=== PATIENT | female | born 1950 | race Caucasian/White ===

== ENCOUNTER 2018-02-09 05:29 | Observation (INO) ==
--- NOTE | 2018-02-09 05:44 | Emergency Department Note ---
Disposition Clinical Impression: Brugada syndrome, Dyspnea Disposition: Admitted As Inpatient Condition: Good Referrals: NONE,PCP [Non-Partnered Physician] - Forms: ED Satisfaction Letter Time of Disposition: 07:02 [facility] - General Chief Complaint: ED Shortness of Breath/Dyspnea Time Seen by Provider: 02/09/18 05:32 Source: patient, EMS Mode of arrival: EMS Limitations: no limitations Nursing Notes Reviewed: Yes Vital Signs Reviewed: Yes - History of Present Illness Patient presents to the ED via EMS for the chief complaint of shortness of breath. reportedly woke up about an hour ago, immediately got out of bed and noticed that she felt very short of breath and winded. States that she felt like her heart is racing. Reports that she developed a centralized chest pressure and heaviness and tightness that has since resolved but she still just does not feel right. She has no significant no history. Takes no medications daily. She has had diverticulitis in the past, partial bowel resection, but states she has not had any issues with that in years. No previous history of coronary artery disease. No history of DVT, PE or malignancy. Patient's pain-free currently. No fever or chills, cough, abdominal pain, nausea, vomiting, diarrhea, diaphoresis, pain or swelling in her legs or rash. No headache or changes in vision. - Related Data Home Medications Medication Instructions Recorded Confirmed Latanoprost [Xalatan] 1 drop BOTH EYES HS 02/09/18 02/09/18 Allergies Allergy/AdvReac Type Severity Reaction Status Date / Time No Known Allergies Allergy Verified 02/09/18 05:33 Review of Systems: As reviewed in the HPI. All other systems reviewed are negative or normal. Past Medical History - Past Medical History Attestation: Yes The following information was validated with the patient. Source: patient Medical history: Reports: no medical history Psychiatric history: Reports: no psych history - Social History Smoking Status: Never smoker Alcohol use: Reports: occasionally Drug use: Reports: none Physical Exam - General Limitations: no limitations General appearance: alert, in no apparent distress - Head Head exam: atraumatic, normocephalic, normal inspection - Eye Eye exam: Present: normal appearance, PERRL, EOMI - ENT ENT exam: normal exam, normal oropharynx, mucous membranes moist - Neck Neck exam: Present: normal inspection, full ROM, trachea midline - Chest Chest inspection: Present: normal inspection, symmetric chest wall rise - Respiratory Respiratory exam: Present: normal lung sounds bilaterally - Cardiovascular Cardiovascular exam: Present: regular rate, normal rhythm, normal heart sounds - Abdominal Exam Abdominal exam: Present: soft, Non-Tender. Absent: tenderness, distention, guarding, rebound, rigidity - Extremities Exam Extremities exam: Present: normal inspection, full ROM. Absent: tenderness, pedal edema - Neurological Exam Neurological exam: Present: alert, oriented X3 - Psychiatric Psychiatric exam: Present: normal affect, normal mood, anxious (Slightly) - Skin Skin exam: Present: warm, dry, intact, normal color Course Course Narrative: Patient presenting ED with shortness breath and chest discomfort that has resolved. We will get labs, EKG, chest x-ray. - Reevaluation(s) Reevaluation #1: signed out pending admission to hospitalist. Signed out to Dr. Miller. Vital Signs Temperature 98.1 F 02/09/18 05:33 Pulse Rate 84 02/09/18 05:33 Respiratory Rate 20 02/09/18 05:33 Blood Pressure 134/72 02/09/18 05:33 O2 Sat by Pulse Oximetry 100 02/09/18 05:33 Temperature 98.1 F 02/09/18 05:33 Pulse Rate 84 02/09/18 05:33 Respiratory Rate 20 02/09/18 05:33 Blood Pressure 134/72 02/09/18 05:33 O2 Sat by Pulse Oximetry 100 02/09/18 05:37 Oxygen Delivery Oxygen Delivery Room Air Shortness of Breath/Dyspnea - Medical Records Medical records reviewed: Yes I reviewed the patient's medical records. - Lab Data Lab results reviewed: Yes I reviewed the patient's lab results. Result diagrams: 02/09/18 05:42 02/09/18 05:42 Lab Results 02/09/18 02/09/18 02/09/18 Range/Units 05:42 05:42 05:42 WBC 5.0 (4.3-11.1) K/mcL RBC 4.46 (3.82-4.97) M/mcL Hgb 13.9 (11.5-15.4) g/dL Hct 40.1 (35.3-44.9) % MCV 89.9 (83.0-100.0) fL MCH 31.2 (28.0-33.3) pg MCHC 34.7 (31.6-35.5) g/dL RDW 11.9 (11.5-14.5) % Plt Count 176 (140-400) K/mcL MPV 10.9 (9.4-12.4) fL Immature Gran % 0.2 (0-4) % Seg Neutrophils % 36.2 % Lymphocytes % 51.8 % Monocytes % 9.4 % Eosinophils % 1.8 % Basophils % 0.6 % Neutrophils # 1.8 (1.6-8.9) K/mcL Lymphocytes # 2.6 (0.6-4.6) K/mcL Monocytes # 0.5 (0.0-1.3) K/mcL Eosinophils # 0.1 (0.0-0.6) K/mcL Basophils # 0.0 (0.0-0.2) K/mcL D-Dimer (0-500) ng/mLFEU Sodium 140 (136-145) mEq/L Potassium 3.6 (3.5-5.1) mEq/L Chloride 107 (98-107) mEq/L Carbon Dioxide 28 (23-29) mEq/L BUN 15 (8-23) mg/dL Creatinine 0.66 (0.60-1.20) mg/dL Est GFR ( Amer) > 60 (> 60) Est GFR (Non-Af Amer) > 60 (> 60) BUN/Creatinine Ratio 23 (6-26) Glucose 105 (70-105) mg/dL Calculated Osmolality 291 (280-300) Calcium 9.1 (8.6-10.3) mg/dL Troponin I < 0.03 (< 0.04) ng/mL B-Natriuretic Peptide 40 (Less than 100) pg/mL Urine Color (Yellow) Urine Clarity (Clear) Urine pH (5.0-8.0) pH Units Ur Specific [place] (1.010-1.025) Urine Protein (Neg-Trace) mg/dL Urine Glucose (UA) (Normal) mg/dL Urine Ketones (Negative) mg/dL Urine Blood (Negative) Urine Nitrite (Negative) Urine Bilirubin (Negative) Urine Urobilinogen (Normal) mg/dL Ur Leukocyte Esterase (Negative) Ur Culture Indicated? (NO) Specimen Rejected 04/16/18 04/16/18 04/16/18 Range/Units 05:42 06:13 06:30 WBC (4.3-11.1) K/mcL RBC (3.82-4.97) M/mcL Hgb (11.5-15.4) g/dL Hct (35.3-44.9) % MCV (83.0-100.0) fL MCH (28.0-33.3) pg MCHC (31.6-35.5) g/dL RDW (11.5-14.5) % Plt Count (140-400) K/mcL MPV (9.4-12.4) fL Immature Gran % (0-4) % Seg Neutrophils % % Lymphocytes % % Monocytes % % Eosinophils % % Basophils % % Neutrophils # (1.6-8.9) K/mcL Lymphocytes # (0.6-4.6) K/mcL Monocytes # (0.0-1.3) K/mcL Eosinophils # (0.0-0.6) K/mcL Basophils # (0.0-0.2) K/mcL D-Dimer < 215 (0-500) ng/mLFEU Sodium (136-145) mEq/L Potassium (3.5-5.1) mEq/L Chloride (98-107) mEq/L Carbon Dioxide (23-29) mEq/L BUN (8-23) mg/dL Creatinine (0.60-1.20) mg/dL Est GFR ( Amer) (> 60) Est GFR (Non-Af Amer) (> 60) BUN/Creatinine Ratio (6-26) Glucose (70-105) mg/dL Calculated Osmolality (280-300) Calcium (8.6-10.3) mg/dL Troponin I (< 0.04) ng/mL B-Natriuretic Peptide (Less than 100) pg/mL Urine Color Yellow (Yellow) Urine Clarity Clear (Clear) Urine pH 7.5 (5.0-8.0) pH Units Ur Specific [place] 1.015 (1.010-1.025) Urine Protein Negative (Neg-Trace) mg/dL Urine Glucose (UA) Normal (Normal) mg/dL Urine Ketones Negative (Negative) mg/dL Urine Blood Negative (Negative) Urine Nitrite Negative (Negative) Urine Bilirubin Negative (Negative) Urine Urobilinogen Normal (Normal) mg/dL Ur Leukocyte Esterase Negative (Negative) Ur Culture Indicated? NO (NO) Specimen Rejected Volume - Radiology Data Radiology results reviewed: Yes I reviewed the patient's radiology results. - EKG Data EKG attestation: Yes I reviewed and interpreted this EKG. EKG results narrative: Sinus rhythm, rate 79,. And 159, QRS 90, QTC 386, normal axis, borderline type II Brugada pattern with several back ST segment elevation in lead V2, mostly and is slightly less prominent in V1. Patient is pain-free at this time
[2018-02-09 05:55] LABS: Basophils % 0.6 %; Eosinophils # 0.1 K/mcL (0.0-0.6); Eosinophils % 1.8 %; Hematocrit 40.1 % (35.3-44.9); Hemoglobin 13.9 g/dL (11.5-15.4); Immature Granulocytes % 0.2 % (0-4); Lymphocytes # 2.6 K/mcL (0.6-4.6); Lymphocytes % 51.8 %; Mean Corpuscular HGB Conc 34.7 g/dL (31.6-35.5); Mean Corpuscular Hemoglobin 31.2 pg (28.0-33.3); Mean Corpuscular Volume 89.9 fL (83.0-100.0); Mean Platelet Volume 10.9 fL (9.4-12.4); Monocytes # 0.5 K/mcL (0.0-1.3); Monocytes % 9.4 %; Neutrophils # 1.8 K/mcL (1.6-8.9); Platelet Count 176 K/mcL (140-400); Red Blood Count 4.46 M/mcL (3.82-4.97); Red Cell Distribution Width 11.9 % (11.5-14.5); Segmented Neutrophils % 36.2 %
[2018-02-09 06:16] LABS: BUN/Creatinine Ratio 23 (6-26); Blood Urea Nitrogen 15 mg/dL (8-23); Calcium 9.1 mg/dL (8.6-10.3); Carbon Dioxide 28 mEq/L (23-29); Chloride 107 mEq/L (98-107); Glucose 105 mg/dL (70-105); Osmolality,Calculated 291 (280-300); Potassium 3.6 mEq/L (3.5-5.1); Sodium 140 mEq/L (136-145); Troponin I < 0.03 ng/mL (< 0.04); eGFR For African Americans > 60 (> 60); eGFR For Non-African Americans > 60 (> 60)
[2018-02-09 06:37] LABS: Bilirubin,Urine Negative (Negative); Blood,Urine Negative (Negative); Clarity,Urine Clear (Clear); Color,Urine Yellow (Yellow); Glucose,Urine (UA) Normal (Normal); Ketones,Urine Negative (Negative); Leukocyte Esterase,Urine Negative (Negative); Nitrite,Urine Negative (Negative); PH,Urine 7.5 pH Units (5.0-8.0); Protein,Urine Negative (Neg-Trace); Specific Gravity,Urine 1.015 (1.010-1.025); Urobilinogen,Urine Normal (Normal)
--- NOTE | 2018-02-09 06:50 | Emergency Department Note ---
Disposition Clinical Impression: Brugada syndrome, Dyspnea Disposition: Admitted As Inpatient Condition: Good Referrals: NONE,PCP [Non-Partnered Physician] - Forms: ED Satisfaction Letter General Adult HPI - General Chief complaint: ED Shortness of Breath/Dyspnea Time Seen by Provider: 02/09/18 05:32 Source: patient, EMS Mode of arrival: EMS Limitations: no limitations Nursing Notes Reviewed: Yes Vital Signs Reviewed: Yes - History of Present Illness Pain Scale: 0 - Related Data Home Medications Medication Instructions Recorded Confirmed Latanoprost [Xalatan] 1 drop BOTH EYES HS 02/09/18 02/09/18 Allergies Allergy/AdvReac Type Severity Reaction Status Date / Time No Known Allergies Allergy Verified 02/09/18 05:33 Past Medical History - Past Medical History Medical history: Reports: no medical history Psychiatric history: Reports: no psych history - Social History Smoking Status: Never smoker Alcohol use: Reports: occasionally Drug use: Reports: none Physical Exam - General Limitations: no limitations General appearance: alert, in no apparent distress Course Vital Signs Temperature 98.1 F 02/09/18 05:33 Pulse Rate 84 02/09/18 05:33 Respiratory Rate 20 02/09/18 05:33 Blood Pressure 134/72 02/09/18 05:33 O2 Sat by Pulse Oximetry 100 02/09/18 05:33 Temperature 98.1 F 02/09/18 05:33 Pulse Rate 67 02/09/18 07:00 Respiratory Rate 20 02/09/18 05:33 Blood Pressure 138/97 02/09/18 07:00 O2 Sat by Pulse Oximetry 100 02/09/18 07:00 Oxygen Delivery Oxygen Delivery Room Air Medical Decision Making - Lab Data Result diagrams: 02/09/18 05:42 02/09/18 05:42 Lab Results 02/09/18 02/09/18 02/09/18 Range/Units 05:42 05:42 05:42 WBC 5.0 (4.3-11.1) K/mcL RBC 4.46 (3.82-4.97) M/mcL Hgb 13.9 (11.5-15.4) g/dL Hct 40.1 (35.3-44.9) % MCV 89.9 (83.0-100.0) fL MCH 31.2 (28.0-33.3) pg MCHC 34.7 (31.6-35.5) g/dL RDW 11.9 (11.5-14.5) % Plt Count 176 (140-400) K/mcL MPV 10.9 (9.4-12.4) fL Immature Gran % 0.2 (0-4) % Seg Neutrophils % 36.2 % Lymphocytes % 51.8 % Monocytes % 9.4 % Eosinophils % 1.8 % Basophils % 0.6 % Neutrophils # 1.8 (1.6-8.9) K/mcL Lymphocytes # 2.6 (0.6-4.6) K/mcL Monocytes # 0.5 (0.0-1.3) K/mcL Eosinophils # 0.1 (0.0-0.6) K/mcL Basophils # 0.0 (0.0-0.2) K/mcL D-Dimer (0-500) ng/mLFEU Sodium 140 (136-145) mEq/L Potassium 3.6 (3.5-5.1) mEq/L Chloride 107 (98-107) mEq/L Carbon Dioxide 28 (23-29) mEq/L BUN 15 (8-23) mg/dL Creatinine 0.66 (0.60-1.20) mg/dL Est GFR ( Amer) > 60 (> 60) Est GFR (Non-Af Amer) > 60 (> 60) BUN/Creatinine Ratio 23 (6-26) Glucose 105 (70-105) mg/dL Calculated Osmolality 291 (280-300) Calcium 9.1 (8.6-10.3) mg/dL Troponin I < 0.03 (< 0.04) ng/mL B-Natriuretic Peptide 40 (Less than 100) pg/mL Urine Color (Yellow) Urine Clarity (Clear) Urine pH (5.0-8.0) pH Units Ur Specific [place] (1.010-1.025) Urine Protein (Neg-Trace) mg/dL Urine Glucose (UA) (Normal) mg/dL Urine Ketones (Negative) mg/dL Urine Blood (Negative) Urine Nitrite (Negative) Urine Bilirubin (Negative) Urine Urobilinogen (Normal) mg/dL Ur Leukocyte Esterase (Negative) Ur Culture Indicated? (NO) Specimen Rejected 02/09/18 02/09/18 02/09/18 Range/Units 05:42 06:13 06:30 WBC (4.3-11.1) K/mcL RBC (3.82-4.97) M/mcL Hgb (11.5-15.4) g/dL Hct (35.3-44.9) % MCV (83.0-100.0) fL MCH (28.0-33.3) pg MCHC (31.6-35.5) g/dL RDW (11.5-14.5) % Plt Count (140-400) K/mcL MPV (9.4-12.4) fL Immature Gran % (0-4) % Seg Neutrophils % % Lymphocytes % % Monocytes % % Eosinophils % % Basophils % % Neutrophils # (1.6-8.9) K/mcL Lymphocytes # (0.6-4.6) K/mcL Monocytes # (0.0-1.3) K/mcL Eosinophils # (0.0-0.6) K/mcL Basophils # (0.0-0.2) K/mcL D-Dimer < 215 (0-500) ng/mLFEU Sodium (136-145) mEq/L Potassium (3.5-5.1) mEq/L Chloride (98-107) mEq/L Carbon Dioxide (23-29) mEq/L BUN (8-23) mg/dL Creatinine (0.60-1.20) mg/dL Est GFR ( Amer) (> 60) Est GFR (Non-Af Amer) (> 60) BUN/Creatinine Ratio (6-26) Glucose (70-105) mg/dL Calculated Osmolality (280-300) Calcium (8.6-10.3) mg/dL Troponin I (< 0.04) ng/mL B-Natriuretic Peptide (Less than 100) pg/mL Urine Color Yellow (Yellow) Urine Clarity Clear (Clear) Urine pH 7.5 (5.0-8.0) pH Units Ur Specific [place] 1.015 (1.010-1.025) Urine Protein Negative (Neg-Trace) mg/dL Urine Glucose (UA) Normal (Normal) mg/dL Urine Ketones Negative (Negative) mg/dL Urine Blood Negative (Negative) Urine Nitrite Negative (Negative) Urine Bilirubin Negative (Negative) Urine Urobilinogen Normal (Normal) mg/dL Ur Leukocyte Esterase Negative (Negative) Ur Culture Indicated? NO (NO) Specimen Rejected Volume Attestation Statement - Attestation Attestation: I, Ramesh Krishna MD, personally evaluated this patient and discussed their management with the resident physician. I reviewed the resident's note and agree with the documented findings, medical decision making, and plan of care. 67-year-old female presents to the emergency department with a complaint of awakening from sleep and then suddenly developing shortness of breath with tightness and heaviness in her chest. No prior history of similar episodes or any cardiac problems. She complained that her throat felt dry and hard to swallow. She did not notice any palpitations. No history of palpitations. She has not been ill recently otherwise. No cough or fever. No dizziness or syncope. On examination patient is a well-developed well-nourished appearing elderly female in no acute distress. She is alert and oriented 3. There is no cyanosis or diaphoresis. Chest is nontender to palpation. Breath sounds are clear and equal bilaterally. Heart regular rate and rhythm. Abdomen soft and nontender with normal bowel sounds. EKG shows sinus rhythm with ventricular rate is 79. Type II Brugada pattern. Labs reviewed and unremarkable. Troponin normal. D-dimer is pending. At shift change patient is signed out to the oncoming dayshift team, Dr. Lopez and Dr. Willem Miller.
--- NOTE | 2018-02-09 07:14 | Emergency Department Note ---
Disposition Clinical Impression: Brugada syndrome, Dyspnea Disposition: Admitted As Inpatient Condition: Good Referrals: NONE,PCP [Non-Partnered Physician] - Forms: ED Satisfaction Letter Time of Disposition: 07:18 General Adult HPI - General Chief complaint: ED Shortness of Breath/Dyspnea Time Seen by Provider: 02/09/18 05:32 Source: patient, EMS Mode of arrival: EMS Limitations: no limitations - History of Present Illness Pain Scale: 0 - Related Data Home Medications Medication Instructions Recorded Confirmed Latanoprost [Xalatan] 1 drop BOTH EYES HS 02/09/18 02/09/18 Allergies Allergy/AdvReac Type Severity Reaction Status Date / Time No Known Allergies Allergy Verified 02/09/18 05:33 Past Medical History - Past Medical History Medical history: Reports: no medical history Psychiatric history: Reports: no psych history - Social History Smoking Status: Never smoker Alcohol use: Reports: occasionally Drug use: Reports: none Physical Exam - General Limitations: no limitations General appearance: alert, in no apparent distress Course Course Narrative: Patient signed out to the nighttime physicians Dr. Erendira Downey. Patient presented with acute shortness of breath at home with some chest tightness. D-dimer troponin and BNP are all unremarkable. EKG does not show acute signs of ST segment elevation does have a type II Brugada syndrome. Because of the findings as well as a concern for acute coronary syndrome the patient will be admitted to the hospital for definitive management. Conversation was had with the on-call hospitalist Dr. Perkins. We reviewed the presentation case he had no other recommendations at this time. Patient will not be started on heparin drip will be given an aspirin here in the emergency room. She has been asymptomatic and having no complaints of the time of admission to the hospital Vital Signs Temperature 98.1 F 02/09/18 05:33 Pulse Rate 84 02/09/18 05:33 Respiratory Rate 20 02/09/18 05:33 Blood Pressure 134/72 02/09/18 05:33 O2 Sat by Pulse Oximetry 100 02/09/18 05:33 Temperature 98.1 F 02/09/18 05:33 Pulse Rate 67 02/09/18 07:00 Respiratory Rate 20 02/09/18 05:33 Blood Pressure 138/97 02/09/18 07:00 O2 Sat by Pulse Oximetry 100 02/09/18 07:00 Oxygen Delivery Oxygen Delivery Room Air Medical Decision Making - Lab Data Result diagrams: 02/09/18 05:42 02/09/18 05:42 Lab Results 02/09/18 02/09/18 02/09/18 Range/Units 05:42 05:42 05:42 WBC 5.0 (4.3-11.1) K/mcL RBC 4.46 (3.82-4.97) M/mcL Hgb 13.9 (11.5-15.4) g/dL Hct 40.1 (35.3-44.9) % MCV 89.9 (83.0-100.0) fL MCH 31.2 (28.0-33.3) pg MCHC 34.7 (31.6-35.5) g/dL RDW 11.9 (11.5-14.5) % Plt Count 176 (140-400) K/mcL MPV 10.9 (9.4-12.4) fL Immature Gran % 0.2 (0-4) % Seg Neutrophils % 36.2 % Lymphocytes % 51.8 % Monocytes % 9.4 % Eosinophils % 1.8 % Basophils % 0.6 % Neutrophils # 1.8 (1.6-8.9) K/mcL Lymphocytes # 2.6 (0.6-4.6) K/mcL Monocytes # 0.5 (0.0-1.3) K/mcL Eosinophils # 0.1 (0.0-0.6) K/mcL Basophils # 0.0 (0.0-0.2) K/mcL D-Dimer (0-500) ng/mLFEU Sodium 140 (136-145) mEq/L Potassium 3.6 (3.5-5.1) mEq/L Chloride 107 (98-107) mEq/L Carbon Dioxide 28 (23-29) mEq/L BUN 15 (8-23) mg/dL Creatinine 0.66 (0.60-1.20) mg/dL Est GFR ( Amer) > 60 (> 60) Est GFR (Non-Af Amer) > 60 (> 60) BUN/Creatinine Ratio 23 (6-26) Glucose 105 (70-105) mg/dL Calculated Osmolality 291 (280-300) Calcium 9.1 (8.6-10.3) mg/dL Troponin I < 0.03 (< 0.04) ng/mL B-Natriuretic Peptide 40 (Less than 100) pg/mL Urine Color (Yellow) Urine Clarity (Clear) Urine pH (5.0-8.0) pH Units Ur Specific [place] (1.010-1.025) Urine Protein (Neg-Trace) mg/dL Urine Glucose (UA) (Normal) mg/dL Urine Ketones (Negative) mg/dL Urine Blood (Negative) Urine Nitrite (Negative) Urine Bilirubin (Negative) Urine Urobilinogen (Normal) mg/dL Ur Leukocyte Esterase (Negative) Ur Culture Indicated? (NO) Specimen Rejected 02/09/18 02/09/18 02/09/18 Range/Units 05:42 06:13 06:30 WBC (4.3-11.1) K/mcL RBC (3.82-4.97) M/mcL Hgb (11.5-15.4) g/dL Hct (35.3-44.9) % MCV (83.0-100.0) fL MCH (28.0-33.3) pg MCHC (31.6-35.5) g/dL RDW (11.5-14.5) % Plt Count (140-400) K/mcL MPV (9.4-12.4) fL Immature Gran % (0-4) % Seg Neutrophils % % Lymphocytes % % Monocytes % % Eosinophils % % Basophils % % Neutrophils # (1.6-8.9) K/mcL Lymphocytes # (0.6-4.6) K/mcL Monocytes # (0.0-1.3) K/mcL Eosinophils # (0.0-0.6) K/mcL Basophils # (0.0-0.2) K/mcL D-Dimer < 215 (0-500) ng/mLFEU Sodium (136-145) mEq/L Potassium (3.5-5.1) mEq/L Chloride (98-107) mEq/L Carbon Dioxide (23-29) mEq/L BUN (8-23) mg/dL Creatinine (0.60-1.20) mg/dL Est GFR ( Amer) (> 60) Est GFR (Non-Af Amer) (> 60) BUN/Creatinine Ratio (6-26) Glucose (70-105) mg/dL Calculated Osmolality (280-300) Calcium (8.6-10.3) mg/dL Troponin I (< 0.04) ng/mL B-Natriuretic Peptide (Less than 100) pg/mL Urine Color Yellow (Yellow) Urine Clarity Clear (Clear) Urine pH 7.5 (5.0-8.0) pH Units Ur Specific [place] 1.015 (1.010-1.025) Urine Protein Negative (Neg-Trace) mg/dL Urine Glucose (UA) Normal (Normal) mg/dL Urine Ketones Negative (Negative) mg/dL Urine Blood Negative (Negative) Urine Nitrite Negative (Negative) Urine Bilirubin Negative (Negative) Urine Urobilinogen Normal (Normal) mg/dL Ur Leukocyte Esterase Negative (Negative) Ur Culture Indicated? NO (NO) Specimen Rejected Volume
[2018-02-09] MEDS ORDERED: Aspirin 81 MG TAB.CHEW PO STA (07:23)
[2018-02-09] MEDS ORDERED: Naloxone 0.4 MG/ML INJ IVP PRN (08:16)
--- NOTE | 2018-02-09 10:03 | Internal Med History&Physical ---
Date of Encounter: 02/09/18 Time of Encounter: 09:59 Internal Medicine - H&P: HPI Chief complaint: chest pressure History of present illness: Ms. Covarrubias is a 67 year old female history of glaucoma who presents with complaint of chest pressure shortness of breath. Patient notes that her chest pressure shortness of breath started early this a.m. Patient was she has never has symptoms of this in the past. Patient's her chest pressure was located in the middle of the chest without any particular radiation. Patient will symptoms lasted for approximately several minutes. Symptoms resolved in the ambulance. At this time patient denies fever, chills or rigors. At this time patient notes her symptoms have completely resolved. She currently denies headache, visual disturbance, neck pain or focal weakness. Patient voices no other concerns. Patient to be admitted for further evaluation. Past Med Surg Social Fam HX - Past Medical History Medical history: no medical history Psychiatric history: no psych history - Past Surgical History Surgical History: other (Cholecystectomy) - Social History Smoking Status: Never smoker Alcohol use: occasionally Drug use: none - Family History Mother Adopted: No Living Status: Still Living Hx Family Cardiac Disorders: No Hx Family Respiratory Disorders: No Hx Family Cancer: No Hx Family GI Disorders: No Hx Family Genitourinary Disorders: No Hx Family Endocrine Disorder: No Hx Family Musculoskeletal Disorders: No Hx Family Neuromuscular Disorders: No Hx Family Neurologic Disorders: No Hx Family HEENT Disorders: No Hx Family Autoimmune Disorders: No Hx Family Reproductive Disorders: No Hx Family Psychosocial Disorders: No Hx Family Medical Disorders: No Father Living Status: Unknown Hx Family Cardiac Disorders: No Hx Family Respiratory Disorders: No Hx Family Cancer: No Hx Family GI Disorders: No Hx Family Genitourinary Disorders: No Hx Family Endocrine Disorder: No Hx Family Musculoskeletal Disorders: No Hx Family Neuromuscular Disorders: No Hx Family Neurologic Disorders: No Hx Family HEENT Disorders: No Hx Family Autoimmune Disorders: No Hx Family Reproductive Disorders: No Hx Family Psychosocial Disorders: No Hx Family Medical Disorders: No Internal Medicine - H&P: Meds Latanoprost [Xalatan] 1 drop BOTH EYES HS 02/09/18 [History] 3 Allergy/AdvReac Type Severity Reaction Status Date / Time No Known Allergies Allergy Verified 02/09/18 05:33 All Systems PM: A 10-system review of systems was performed and is negative for pertinent findings except as documented above in the HPI. Review of systems: All systems reviewed and negative except for what is mentioned in history of present illness - Constitutional Vitals: Temp Pulse Resp BP Pulse Ox 98.1 F 77 17 142/83 99 02/09/18 05:33 02/09/18 08:54 02/09/18 08:54 02/09/18 08:54 02/09/18 08:54 Vital signs as above Gen.: Alternative shows calm cooperative, able to speak in full sentences HEENT: Atraumatic, normocephalic, extraoculars are intact, PERRL, there is no scleral icterus Neck: No JVD, no pain to palpation, full range of motion Heart: Normal S1-S2 regular rate and rhythm Lungs: Clear to auscultation Abdomen: Soft, nontender, nondistended, positive bowel sounds, no guarding, no rigidity Musculoskeletal: Patient moves unfortunately freely, no pain to palpation of large joints, tenderness, no pedal edema Neuro: Nonfocal, no lateralization, cranial nerves are intact Skin: Intact known rash Psychiatry: Normal affect Internal Med - H&P Results - Labs CBC & Chem 7: 02/09/18 05:42 02/09/18 05:42 - Assessment and plan (1) Arrhythmia Current Visit: Yes Status: Acute Assessment and plan: Brugada-like pattern on EKG. At this time patient denies chest pain or shortness of breath Patient denies any history of cardiac disease Continues personnel monitor, check cardiac enzymes, echocardiogram I discussed case with cardiology today. EKG's reviewed as well. At this time no acute intervention required per cardiology. EP will be consulted by cardiology. I will evaluate patient in consultation, no acute intervention at this time ECHO ordered. Qualifiers: Qualified Code(s): I49.9 - Cardiac arrhythmia, unspecified (2) Glaucoma Current Visit: Yes Status: Acute Assessment and plan: continue home medications Qualifiers: Qualified Code(s): H40.9 - Unspecified glaucoma (3) DVT prophylaxis Current Visit: Yes Status: Acute Assessment and plan: SCD's for VTE prophylaxis Ambulate with assistance - Time Spent With Patient Total time spent is greater than 50% in coordination of care (as documented) at patient's floor/unit and/or counseling patient:
[2018-02-09] MEDS ORDERED: Latanoprost 2.5 ML BOTTLE BOTH EYES SCH (21:00)
[2018-02-10 05:24] LABS: Basophils % 0.4 %; Eosinophils # 0.1 K/mcL (0.0-0.6); Eosinophils % 1.8 %; Hematocrit 40.8 % (35.3-44.9); Hemoglobin 13.9 g/dL (11.5-15.4); Immature Granulocytes % 0.2 % (0-4); Lymphocytes # 2.3 K/mcL (0.6-4.6); Mean Corpuscular HGB Conc 34.1 g/dL (31.6-35.5); Mean Corpuscular Hemoglobin 30.8 pg (28.0-33.3); Mean Corpuscular Volume 90.3 fL (83.0-100.0); Mean Platelet Volume 10.9 fL (9.4-12.4); Monocytes # 0.4 K/mcL (0.0-1.3); Monocytes % 8.7 %; Neutrophils # 2.1 K/mcL (1.6-8.9); Platelet Count 177 K/mcL (140-400); Red Blood Count 4.52 M/mcL (3.82-4.97); Red Cell Distribution Width 11.9 % (11.5-14.5); Segmented Neutrophils % 41.9 %
[2018-02-10 05:33] LABS: Prothrombin Time 10.8 Seconds (9.4-12.1)
[2018-02-10 05:41] LABS: Alanine Aminotransferase 15 Units/L (7-52); Albumin/Globulin Ratio 1.8 (1.1-2.2); Alkaline Phosphatase 57 Units/L (34-104); Aspartate Amino Transferase 15 Units/L (13-39); BUN/Creatinine Ratio 24 (6-26); Bilirubin,Total 0.5 mg/dL (0.3-1.0); Blood Urea Nitrogen 16 mg/dL (8-23); Calcium 8.9 mg/dL (8.6-10.3); Carbon Dioxide 27 mEq/L (23-29); Chloride 107 mEq/L (98-107); Chol/HDL Ratio 2.5 (0-4.9); Cholesterol 206 mg/dL (< 200); Globulin 2.2 g/dL (2.4-3.5); Glucose 107 mg/dL (70-105); HDL Cholesterol 84 mg/dL (40-59); LDL Cholesterol,Calculated 110 mg/dL (0-99); Osmolality,Calculated 288 (280-300); Potassium 3.7 mEq/L (3.5-5.1); Sodium 138 mEq/L (136-145); Total Protein 6.2 g/dL (6.4-8.9); Triglycerides 58 mg/dL (< 150); eGFR For African Americans > 60 (> 60); eGFR For Non-African Americans > 60 (> 60)
--- NOTE | 2018-02-10 09:36 | Electrocardiograph Report ---
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
--- NOTE | 2018-02-10 10:35 | Electrophysiology Consult Note ---
<Tracey Orlando - Last Filed: 02/10/18 10:30> Date of Encounter: 02/10/18 Time of Encounter: 09:30 Assessment and Plan (1) Abnormal ECG Current Visit: Yes Status: Acute Per EP: -ECG with type II brugada pattern. -Denies palpitations or fluttering. -Denies syncope or near syncope. -Denies family history of sudden cardiac . -TTE pending. -Will discuss and review with Dr.John Apodaca. (2) Chest discomfort Current Visit: Yes Status: Acute Per cardiology: -Reports chest discomfort yesterday while at rest. -Denies current. -Troponins negative x4. -No acute ischemic ECG changes. -TTE pending. -Further recommendations pending TTE. Discussion w patient/family: The assessment and plan as outlined above was discussed with the patient and/or family members who expressed understanding and agreement. All questions were answered. Thank you for involving us in the care of your patient. Please call with any questions. Discussed and reviewed with Dr.John Apodaca. History of Present Illness Consult date: 02/10/18 Requesting physician: Scott Walker Consult reason: brugada Chief complaint: shortness of breath, chest heaviness History of present illness: Ms. Covarrubias is a 67 year old female with a relevant past medical history of diverticulitis, who presented to [facility] with complaints of shortness of breath and chest heaviness. Patient states she woke up yesterday about 0500 and just "wasn't feeling well." Patient states she went and laid back down and the had shortness of breath and chest heaviness. Patient denies aggravating or alleviating symptoms. Patient denies exertional symptoms. Patient reports pain resolved spontaneoulsy after a few hours. Patient denies any current symptoms. Past Med Surg Social Fam HX - Past Medical History Attestation: Yes The following information was validated with the patient. Source: patient, old records reviewed Medical history: no medical history Psychiatric history: no psych history - Past Surgical History Surgical History: other (Cholecystectomy) - Social History Smoking Status: Never smoker Alcohol use: occasionally Drug use: none - Family History Mother Adopted: No Living Status: Still Living Hx Family Cardiac Disorders: No Hx Family Respiratory Disorders: No Hx Family Cancer: No Hx Family GI Disorders: No Hx Family Genitourinary Disorders: No Hx Family Endocrine Disorder: No Hx Family Musculoskeletal Disorders: No Hx Family Neuromuscular Disorders: No Hx Family Neurologic Disorders: No Hx Family HEENT Disorders: No Hx Family Autoimmune Disorders: No Hx Family Reproductive Disorders: No Hx Family Psychosocial Disorders: No Hx Family Medical Disorders: No Father Living Status: Unknown Hx Family Cardiac Disorders: No Hx Family Respiratory Disorders: No Hx Family Cancer: No Hx Family GI Disorders: No Hx Family Genitourinary Disorders: No Hx Family Endocrine Disorder: No Hx Family Musculoskeletal Disorders: No Hx Family Neuromuscular Disorders: No Hx Family Neurologic Disorders: No Hx Family HEENT Disorders: No Hx Family Autoimmune Disorders: No Hx Family Reproductive Disorders: No Hx Family Psychosocial Disorders: No Hx Family Medical Disorders: No Medications and Allergies Latanoprost [Xalatan] 1 drop BOTH EYES HS 02/09/18 [History] 3 Allergy/AdvReac Type Severity Reaction Status Date / Time No Known Allergies Allergy Verified 02/09/18 05:33 All Systems Review: The remainder of the systems were reviewed and are negative - Cardiovascular Cardiovascular: as per HPI, chest pain at rest, dyspnea at rest Physical Examination Vital Signs, Last 4 Hours Temp Pulse Resp BP Pulse Ox 02/10/18 07:27 98.3 F 59 16 125/81 98 General: Conversant, No Apparent Distress HEENT: Atraumatic, Normocephaly, Mucus Membranes Moist Neck: No JVD, Normal carotid pulses Cardiac: Reg Rate and Rhythm, Normal S1 and S2, No Murmur Lungs: Normal Breath Sounds, No Wheeze, Rales, Rhonchi Neuro: Alert and responsive, No focal deficits noted Abdomen: Soft, Non-Tender Skin: No rashes noted on visualized skin Musculoskeletal: No Chest Wall Tenderness Extremities: No Clubbing, No Cyanosis, No Edema, Normal Pulses Results 02/10/18 04:59 02/10/18 04:59 Lab Results Active Medications Latanoprost (Xalatan) 1 drop BOTH EYES HS GI PRN Reason: Protocol Stop: 08/11/18 21:01 Last Admin: 02/09/18 19:29 Dose: 1 drop Naloxone HCl (Narcan) 0.4 mg IVP Q2MIN PRN PRN Reason: SEE COMMENTS Stop: 08/11/18 08:17 Laboratory Tests 02/09/18 02/09/18 02/09/18 05:42 12:21 17:33 Hgb Sodium Potassium Creatinine Magnesium Troponin I < 0.03 < 0.03 < 0.03 02/09/18 02/10/18 02/10/18 23:58 04:59 04:59 Hgb 13.9 Sodium 138 Potassium 3.7 Creatinine 0.68 Magnesium 2.0 Troponin I < 0.03 - Imaging and Cardiology Chest Xray: report reviewed Echo: pending - EKG Interpretation EKG results cardiology: personally reviewed (ECG with SR, type II brugada pattern.), other (Telemetry reviewed with average HR previous 12 hours noted to be 71, SR. PACs noted.) Consult Discharge Plan - Plan Referrals: Bowen Forbes, [Primary Care Provider] - (patient will call for an appt. per Dr. Forbes office) <Landon Apodaca - Last Filed: 02/10/18 15:25> Date of Encounter: 02/10/18 - Attending Attestation I have personally performed a face to face evaluation on this patient. I have reviewed and agree with the care plan. History and Exam by me shows: Type II brugada pattern in a 67 yo. Doubt this is clinically significant but structural heart disease work up could be done as outpt. Assessment and Plan Discussion w patient/family: The assessment and plan as outlined above was discussed with the patient and/or family members who expressed understanding and agreement. All questions were answered. Thank you for involving us in the care of your patient. Please call with any questions. History of Present Illness History of present illness: Ms. Covarrubias is a 67 year old female All Systems Review: The remainder of the systems were reviewed and are negative Physical Examination Vital Signs, Last 4 Hours Temp Pulse Resp BP Pulse Ox 02/10/18 11:58 98.2 F 63 16 117/77 97 Results 02/10/18 04:59 02/10/18 04:59 Lab Results 02/09/18 02/09/18 02/10/18 17:33 23:58 04:59 WBC 5.0 Hgb 13.9 Hct 40.8 Plt Count 177 INR Sodium Potassium Chloride Carbon Dioxide BUN Creatinine Glucose Calcium Magnesium Total Bilirubin AST ALT Alkaline Phosphatase Troponin I < 0.03 < 0.03 02/10/18 02/10/18 04:59 04:59 WBC Hgb Hct Plt Count INR 1.0 Sodium 138 Potassium 3.7 Chloride 107 Carbon Dioxide 27 BUN 16 Creatinine 0.68 Glucose 107 H Calcium 8.9 Magnesium 2.0 Total Bilirubin 0.5 AST 15 ALT 15 Alkaline Phosphatase 57 Troponin I
--- NOTE | 2018-02-10 11:28 | Internal Med Progress Note ---
Date of Encounter: 02/10/18 Time of Encounter: 11:27 - Assessment and plan (1) Arrhythmia Current Visit: Yes Status: Acute Assessment and plan: Brugada-like pattern on EKG. EP is following. Echocardiogram pending. Unsure about further plans and possibly needing a defibrillator??. Trend cardiac enzymes. Telemetry. Qualifiers: Arrhythmia type: premature depolarization Premature depolarization type: unspecified Qualified Code(s): I49.40 - Unspecified premature depolarization (2) Glaucoma Current Visit: Yes Status: Acute Assessment and plan: continue home medications Qualifiers: Glaucoma type: unspecified Laterality: unspecified laterality Qualified Code(s): H40.9 - Unspecified glaucoma (3) DVT prophylaxis Current Visit: Yes Status: Acute Assessment and plan: SCD's for VTE prophylaxis Ambulate with assistance - Time Spent With Patient Total time spent is greater than 50% in coordination of care (as documented) at patient's floor/unit and/or counseling patient: - Subjective Interval history: Patient was seen and examined. No acute events. Admitted with chest pain and found to have Brugada syndrome. Pain seen by electrophysiology. - Constitutional Vitals: Temp Pulse Resp BP Pulse Ox 98.3 F 59 16 125/81 98 02/10/18 07:27 02/10/18 07:27 02/10/18 07:27 02/10/18 07:27 02/10/18 07:27 Exam: GEN: NAD CVS: RRR. S1, S2, No m/r/g RESP: CTAB ABD: Soft, NT, ND, +BS EXT: No edema. 2+ DP. No rashes NEURO: Nonfocal Internal Medicine: Result - Labs CBC & Chem 7: 02/10/18 04:59 02/10/18 04:59 Labs: Short CBC 02/10/18 Range/Units 04:59 WBC 5.0 (4.3-11.1) K/mcL Hgb 13.9 (11.5-15.4) g/dL Hct 40.8 (35.3-44.9) % Plt Count 177 (140-400) K/mcL Neutrophils # 2.1 (1.6-8.9) K/mcL BMP 02/10/18 04:59 Sodium 138 Potassium 3.7 Chloride 107 Carbon Dioxide 27 BUN 16 Creatinine 0.68 Glucose 107 H Calcium 8.9 Cardiac Enzymes 02/09/18 02/09/18 02/09/18 Range/Units 12:21 17:33 23:58 Troponin I < 0.03 < 0.03 < 0.03 (< 0.04) ng/mL Liver Function 02/10/18 Range/Units 04:59 Total Bilirubin 0.5 (0.3-1.0) mg/dL AST 15 (13-39) Units/L ALT 15 (7-52) Units/L Alkaline Phosphatase 57 (34-104) Units/L Albumin 4.0 (3.5-5.7) g/dL - ABG Interpretation ABG results: PT/INR, D-dimer PT 10.8 Seconds (9.4-12.1) 02/10/18 04:59 D-Dimer < 215 ng/mLFEU (0-500) 02/09/18 06:13 Consult Discharge Plan - Plan Referrals: Bowen Forbes DO [Primary Care Provider] -
[2018-02-10 16:25] VITALS: BP 126/84
--- NOTE | 2018-02-10 17:46 | Discharge Summary ---
Date of Encounter: 02/11/18 Time of Encounter: 17:41 - Discharge Diagnosis (1) Arrhythmia Priority: Primary Status: Acute Qualifiers: Arrhythmia type: premature depolarization Premature depolarization type: unspecified Qualified Code(s): I49.40 - Unspecified premature depolarization (2) Glaucoma Priority: Secondary Status: Acute Qualifiers: Glaucoma type: unspecified Laterality: unspecified laterality Qualified Code(s): H40.9 - Unspecified glaucoma Hospital course: Ms. Covarrubias is a 67 year old female history of glaucoma who presents with complaint of chest pressure shortness of breath. Patient notes that her chest pressure shortness of breath started early in the morning. She came to the ED where she was hemodynamically stable but EKG showed Brugada syndrome. She was admitted for that and an echo was done with no structural abnormalities. Trops were not elevated x3. She remained hemodynamically stable. They were seen by the EP INSOLE DEPARTMENT WORKER and the family was under the impression that they would be seen by Dr. Apodaca from EP, however, the patient was only seen by the INSOLE DEPARTMENT WORKER. Family was upset and I was made aware by the patient's nurse that the patient was cleared for discharge based on the attestation written by Cardiology to the INSOLE DEPARTMENT WORKER's note and based on the nurse's conversation with the quitline counselor propellant charge zone assembler, Dr. Springer. The family was promised that they will be seen by Dr. Apodaca early in the morning the following day before discharge but the family elected to leave. I spoke to Dr. Springer who was propellant charge zone assembler for cardiology after 5 pm on 02/10 and she was not too familiar with the case but she also felt that the patient can be followed upon in the outpatient setting. The patient was discharged and given referral to see Dr. Apodaca. She was stable for discharge on 02/10. - Time Spent with Patient Total time spent providing and/or coordinating discharge services: Greater than 30 minutes - Discharge Medications Home Medications: Latanoprost [Xalatan] 1 drop BOTH EYES HS 02/09/18 [History] Allergies/Adverse Reactions: 3 Allergy/AdvReac Type Severity Reaction Status Date / Time No Known Allergies Allergy Verified 02/09/18 05:33 Date of admission: 02/09/18 08:08 Primary care physician: Bowen Forbes Consults: 02/09/18 09:15 Consult to Cardiology [CONS] Routine Comment: Consulting Provider: Cardiology Prema Reason for Consult: arrhythmia Time Notified: 09:15 Call Completed: Yes - Constitutional Vitals: Temp Pulse Resp BP Pulse Ox 97.6 F 60 16 126/84 98 02/10/18 16:24 02/10/18 16:24 02/10/18 16:24 02/10/18 16:24 02/10/18 16:24 Exam: GEN: NAD CVS: RRR. S1, S2, No m/r/g RESP: CTAB ABD: Soft, NT, ND, +BS EXT: No edema. 2+ DP. No rashes NEURO: Nonfocal - Patient Status Disposition: Home, Self-Care Condition: Fair Overall status at discharge: patient is progressing back to baseline - Discharge Instructions Follow Up With: Bowen Forbes DO [Primary Care Provider] - (patient will call for an appt. per Dr. Forbes office) Landon Apodaca MD [Partnered Physician] - (2 weeks) - Diet and Activity Activity: increase activity as tolerated Diet: regular diet
== END 2018-02-10 21:00 | disposition home or self-care (01) ==
LOC: EMEROO 05:29 → 2ANU 05:29
PROVIDERS: ADMIT Internal Medicine; ATTEND Internal Medicine